=== PATIENT | female | born 1945 ===

== ENCOUNTER 2022-06-02 14:44 | Inpatient (IN) ==
[2022-06-02] MEDS ORDERED: SODIUM CHLORIDE 0.9% 1,000 ML IV STA (15:26)
[2022-06-02] MEDS ORDERED: cefTRIAXone 1,000 MG in SODIUM CHLORIDE 0.9% 100 ML IV STA (15:35)
[2022-06-02 15:53] LABS: Basophils % 0.1 % (0.0-0.8); Hematocrit 40.8 VOL% (35.7-47.0); Hemoglobin 13.5 GM/DL (12.0-16.0); Immature Granulocytes % 0.6 %; Immature Granulocytes Absolute 0.09 #; Lymphocytes # 1.4 10*3/uL (1.4-4.0); Lymphocytes % 9.8 % (21.3-54.2); Mean Corpuscular HGB Conc 33.1 GM/DL (32-36); Mean Corpuscular Volume 95.1 FL (87-102); Mean Platelet Volume 9.7 FL (9.6-12.0); Monocytes # 1.2 10*3/uL (0.11-0.8); Monocytes % 8.7 % (1.7-12.7); Neutrophils % 80.8 % (38.7-73.9); Platelet Count 369 T/CUMM (130-400); Red Blood Count 4.29 MC/CUMM (3.8-5.5); Red Cell Distribution Width 14.7 % (9.3-17.3); White Blood Count 14.3 T/CUMM (4-12)
[2022-06-02 16:09] LABS: Albumin 2.3 G/DL (3.4-5.0); Bilirubin,Total 0.7 MG/DL (0.20-1.00); Calcium 9.7 MG/DL (8.5-10.1); Osmolality,Calculated 304.7 MOS/KG (273-304); Potassium 5.3 MMOL/L (3.5-5.1); Total Protein 7.4 G/DL (6.4-8.2)
[2022-06-02 16:45] LABS: Bilirubin,Urine Negative (Negative); Blood, Urine Small mg/dL (Negative); Glucose,Urine (UA) Negative (Negative); Ketones,Urine 5 mg/dL (Negative); Nitrite,Urine Negative (Negative); Protein,Urine >=500 mg/dL (Negative); Urine Appearance CLOUDY (Clear); Urine Color Yellow (Yellow); Urine Specific Gravity 1.027 (1.001-1.035); Urine Urobilinogen < 2.0 eU/dL (<2.0)
[2022-06-02 16:48] LABS: INR 1.2; PT Patient Result 12.9 SECS (10.1-12.1); Partial Thromboplastin Time 34.7 SECS (23.7-32.9)
[2022-06-02] MEDS ORDERED: SODIUM CHLORIDE 0.9% 500 ML IV STA (16:55)
[2022-06-02] MEDS ORDERED: guaiFENesin/DM ER 600-30 MG TABLET PO PRN (17:44)
[2022-06-02] MEDS ORDERED: ONDANSETRON 4 MG/2 ML VIAL IV PRN (17:44)
[2022-06-02] MEDS ORDERED: NICOTINE 21 MG/24 HR PATCH TRANSDERM PRN (17:44)
[2022-06-02] MEDS ORDERED: hydrALAZINE 20 MG/1 ML VIAL IV PRN (17:44)
[2022-06-02] MEDS ORDERED: ACETAMINOPHEN 325 MG TABLET PO PRN (17:44)
[2022-06-02] MEDS ORDERED: SODIUM CHLORIDE 0.9% 1,000 ML IV SCH (18:00)
[2022-06-02] MEDS: HEPARIN 5,000 UNIT/1 ML VIAL SUBCUT SCH (21:15)
[2022-06-03] MEDS: cefTRIAXone 1,000 MG in SODIUM CHLORIDE 0.9% 100 ML IV SCH (05:05)
[2022-06-03 05:57] LABS: Basophils % 0.1 % (0.0-0.8); Hematocrit 38.6 VOL% (35.7-47.0); Hemoglobin 11.9 GM/DL (12.0-16.0); Immature Granulocytes % 0.6 %; Immature Granulocytes Absolute 0.11 #; Lymphocytes # 1.3 10*3/uL (1.4-4.0); Lymphocytes % 7.7 % (21.3-54.2); Mean Corpuscular HGB Conc 30.8 GM/DL (32-36); Mean Corpuscular Volume 98.7 FL (87-102); Mean Platelet Volume 9.7 FL (9.6-12.0); Monocytes # 1.1 10*3/uL (0.11-0.8); Monocytes % 6.3 % (1.7-12.7); Neutrophils % 85.3 % (38.7-73.9); Platelet Count 295 T/CUMM (130-400); Red Blood Count 3.91 MC/CUMM (3.8-5.5)
[2022-06-03 06:26] LABS: Albumin 2.1 G/DL (3.4-5.0); Bilirubin,Total 0.6 MG/DL (0.20-1.00); Calcium 9.6 MG/DL (8.5-10.1); Osmolality,Calculated 309.9 MOS/KG (273-304); Potassium 4.3 MMOL/L (3.5-5.1); Total Protein 7.1 G/DL (6.4-8.2)
[2022-06-03 07:05] LABS: Hepatitis B Core IgM Quant 0.13 Index; Hepatitis B Surface Ag Quant < 0.10 Index; Hepatitis B Surface Ag Result Non-Reactive (NonReactive); Hepatitis C Virus Ab Quant 0.09 Index; Hepatitis C Virus Ab Result Non-Reactive (NonReactive)
[2022-06-03] MEDS: HEPARIN 5,000 UNIT/1 ML VIAL SUBCUT SCH ×2 (09:46→21:55)
[2022-06-03] MEDS: PANTOPRAZOLE 40 MG TABLET PO SCH (09:46)
[2022-06-03] MEDS ORDERED: CLOBETASOL 0.05% CREAM 15 GM TUBE TOP PRN (13:04)
[2022-06-03] MEDS: DEXTROSE 5% 1,000 ML IV SCH (14:32)
[2022-06-03] MEDS: LACTULOSE 20 GM/30 ML UDCUP PO SCH ×2 (14:32→21:56)
[2022-06-03] MEDS: MIRTAZAPINE 15 MG TABLET PO SCH (21:56)
[2022-06-03] MEDS: CYPROHEPTADINE 4 MG TABLET PO SCH (21:56)
[2022-06-03] MEDS: MELATONIN 3 MG TABLET PO SCH (21:56)
[2022-06-03] MEDS: QUEtiapine 25 MG TABLET PO SCH (21:56)
[2022-06-04] MEDS: LACTULOSE 20 GM/30 ML UDCUP PO SCH ×2 (01:30→22:25)
[2022-06-04 06:03] LABS: Basophils % 0.1 % (0.0-0.8); Eosinophils # 0.1 10*3/uL (0.0-0.87); Eosinophils % 0.6 % (0.00-10.9); Hematocrit 40.1 VOL% (35.7-47.0); Hemoglobin 12.6 GM/DL (12.0-16.0); Immature Granulocytes Absolute 0.08 #; Lymphocytes # 1.6 10*3/uL (1.4-4.0); Lymphocytes % 18.9 % (21.3-54.2); Mean Corpuscular HGB Conc 31.4 GM/DL (32-36); Mean Corpuscular Volume 100.3 FL (87-102); Mean Platelet Volume 9.8 FL (9.6-12.0); Monocytes # 0.8 10*3/uL (0.11-0.8); Neutrophils % 69.4 % (38.7-73.9); Platelet Count 272 T/CUMM (130-400); Red Cell Distribution Width 15.4 % (9.3-17.3); White Blood Count 8.2 T/CUMM (4-12)
[2022-06-04 06:34] LABS: Calcium 9.5 MG/DL (8.5-10.1); Osmolality,Calculated 307.9 MOS/KG (273-304); Potassium 4.1 MMOL/L (3.5-5.1)
[2022-06-04] MEDS: LEVOTHYROXINE 50 MCG TABLET PO SCH (07:13)
[2022-06-04] MEDS: cefTRIAXone 1,000 MG in SODIUM CHLORIDE 0.9% 100 ML IV SCH (07:13)
[2022-06-04] MEDS: DEXTROSE 5% 1,000 ML IV SCH (07:15)
[2022-06-04] MEDS: HEPARIN 5,000 UNIT/1 ML VIAL SUBCUT SCH ×2 (10:30→22:25)
[2022-06-04] MEDS: CYPROHEPTADINE 4 MG TABLET PO SCH ×2 (10:34→22:25)
[2022-06-04] MEDS: OXYBUTYNIN 5 MG TABLET PO SCH (10:34)
[2022-06-04] MEDS: SERTRALINE 50 MG TABLET PO SCH (10:34)
[2022-06-04] MEDS: PANTOPRAZOLE 40 MG TABLET PO SCH (10:34)
[2022-06-04] MEDS: MELATONIN 3 MG TABLET PO SCH (22:25)
[2022-06-04] MEDS: QUEtiapine 25 MG TABLET PO SCH (22:26)
[2022-06-04] MEDS: MIRTAZAPINE 15 MG TABLET PO SCH (22:26)
[2022-06-05] MEDS: DEXTROSE 5% 1,000 ML IV SCH ×2 (05:13→22:33)
[2022-06-05] MEDS: cefTRIAXone 1,000 MG in SODIUM CHLORIDE 0.9% 100 ML IV SCH (06:07)
[2022-06-05] MEDS: LEVOTHYROXINE 50 MCG TABLET PO SCH (07:08)
[2022-06-05] MEDS: HEPARIN 5,000 UNIT/1 ML VIAL SUBCUT SCH (09:11)
[2022-06-05] MEDS: CYPROHEPTADINE 4 MG TABLET PO SCH ×2 (09:14→22:23)
[2022-06-05] MEDS: SERTRALINE 50 MG TABLET PO SCH (09:14)
[2022-06-05] MEDS: LACTULOSE 20 GM/30 ML UDCUP PO SCH ×2 (09:14→22:23)
[2022-06-05] MEDS: PANTOPRAZOLE 40 MG TABLET PO SCH (09:14)
[2022-06-05] MEDS: OXYBUTYNIN 5 MG TABLET PO SCH (09:15)
[2022-06-05] MEDS: QUEtiapine 25 MG TABLET PO SCH (22:23)
[2022-06-05] MEDS: MELATONIN 3 MG TABLET PO SCH (22:23)
[2022-06-05] MEDS: MIRTAZAPINE 15 MG TABLET PO SCH (22:23)
[2022-06-06] MEDS: DEXTROSE 5% 1,000 ML IV SCH ×2 (00:29→20:00)
[2022-06-06 05:24] LABS: Basophils % 0.3 % (0.0-0.8); Eosinophils # 0.3 10*3/uL (0.0-0.87); Eosinophils % 3.9 % (0.00-10.9); Hematocrit 34.9 VOL% (35.7-47.0); Hemoglobin 11.7 GM/DL (12.0-16.0); Immature Granulocytes % 1.1 %; Immature Granulocytes Absolute 0.08 #; Lymphocytes # 1.4 10*3/uL (1.4-4.0); Lymphocytes % 20.7 % (21.3-54.2); Mean Corpuscular HGB Conc 33.5 GM/DL (32-36); Mean Corpuscular Volume 95.9 FL (87-102); Mean Platelet Volume 10.5 FL (9.6-12.0); Monocytes # 0.6 10*3/uL (0.11-0.8); Monocytes % 8.2 % (1.7-12.7); Neutrophils % 65.8 % (38.7-73.9); Platelet Count 238 T/CUMM (130-400); Red Blood Count 3.64 MC/CUMM (3.8-5.5); Red Cell Distribution Width 14.6 % (9.3-17.3)
[2022-06-06 05:30] LABS: INR 1.1; PT Patient Result 11.9 SECS (10.1-12.1)
[2022-06-06 05:42] LABS: Calcium 9.4 MG/DL (8.5-10.1); Osmolality,Calculated 276.7 MOS/KG (273-304); Potassium 2.9 MMOL/L (3.5-5.1)
[2022-06-06] MEDS: LEVOTHYROXINE 50 MCG TABLET PO SCH (06:07)
[2022-06-06] MEDS ORDERED: POTASSIUM CHLORIDE RIDER 10 MEQ/100 ML PREMIX IV PRN (06:24)
[2022-06-06] MEDS ORDERED: LACTATED RINGERS 1,000 ML IV SCH (08:00)
[2022-06-06] MEDS ORDERED: POTASSIUM CHLORIDE INJ 50 MEQ in SODIUM CHLORIDE 0.9% 500 ML IV ONE (09:00)
[2022-06-06] MEDS ORDERED: POTASSIUM BICARB EFFERVESCENT 20 MEQ TAB.EFF PO ONE (13:00)
[2022-06-06] MEDS ORDERED: KETAMINE 500 MG/10 ML VIAL ONE (13:06)
[2022-06-06] MEDS ORDERED: ETOMIDATE 20 MG/10 ML VIAL IV ONE (13:06)
[2022-06-06] MEDS ORDERED: LIDOCAINE 2% 5 ML VIAL ONE (13:06)
[2022-06-06] MEDS ORDERED: propofoL 200 MG/20 ML VIAL IV ONE (13:06)
[2022-06-06] MEDS ORDERED: PHENYLEPHRINE 1 MG/10 ML SYRINGE IV ONE (13:13)
[2022-06-06] MEDS: PANTOPRAZOLE 40 MG TABLET PO SCH (14:44)
[2022-06-06] MEDS: CYPROHEPTADINE 4 MG TABLET PO SCH ×2 (14:44→22:06)
[2022-06-06] MEDS: LACTULOSE 20 GM/30 ML UDCUP PO SCH ×2 (14:44→22:06)
[2022-06-06] MEDS: OXYBUTYNIN 5 MG TABLET PO SCH (14:44)
[2022-06-06] MEDS: SERTRALINE 50 MG TABLET PO SCH (14:45)
[2022-06-06] MEDS: cefTRIAXone 1,000 MG in SODIUM CHLORIDE 0.9% 100 ML IV SCH (15:30)
[2022-06-06] MEDS: MELATONIN 3 MG TABLET PO SCH (22:06)
[2022-06-06] MEDS: MIRTAZAPINE 15 MG TABLET PO SCH (22:07)
[2022-06-06] MEDS: QUEtiapine 25 MG TABLET PO SCH (22:07)
[2022-06-07] MEDS: LEVOTHYROXINE 50 MCG TABLET PO SCH (05:29)
[2022-06-07 05:41] LABS: Basophils % 0.3 % (0.0-0.8); Eosinophils # 0.1 10*3/uL (0.0-0.87); Eosinophils % 2.1 % (0.00-10.9); Hematocrit 33.1 VOL% (35.7-47.0); Immature Granulocytes % 0.7 %; Immature Granulocytes Absolute 0.05 #; Lymphocytes # 1.5 10*3/uL (1.4-4.0); Lymphocytes % 22.3 % (21.3-54.2); Mean Corpuscular HGB Conc 33.2 GM/DL (32-36); Mean Corpuscular Volume 96.2 FL (87-102); Mean Platelet Volume 10.4 FL (9.6-12.0); Monocytes # 0.7 10*3/uL (0.11-0.8); Monocytes % 10.7 % (1.7-12.7); Neutrophils % 63.9 % (38.7-73.9); Platelet Count 225 T/CUMM (130-400); Red Blood Count 3.44 MC/CUMM (3.8-5.5); Red Cell Distribution Width 14.9 % (9.3-17.3); White Blood Count 6.8 T/CUMM (4-12)
[2022-06-07 06:01] LABS: Calcium 8.7 MG/DL (8.5-10.1); Osmolality,Calculated 281.1 MOS/KG (273-304); Potassium 3.5 MMOL/L (3.5-5.1)
[2022-06-07] MEDS: DEXTROSE 5% 1,000 ML IV SCH ×2 (08:29→18:26)
[2022-06-07] MEDS ORDERED: MAGNESIUM SULF RIDER 4 GM/100 ML PREMIX IV ONE (09:00)
[2022-06-07] MEDS: LACTULOSE 20 GM/30 ML UDCUP PO SCH ×2 (09:27→22:04)
[2022-06-07] MEDS: cefTRIAXone 1,000 MG in SODIUM CHLORIDE 0.9% 100 ML IV SCH (09:28)
[2022-06-07] MEDS: CYPROHEPTADINE 4 MG TABLET PO SCH ×2 (09:28→22:09)
[2022-06-07] MEDS: PANTOPRAZOLE 40 MG TABLET PO SCH (09:28)
[2022-06-07] MEDS: SERTRALINE 50 MG TABLET PO SCH (09:28)
[2022-06-07] MEDS: OXYBUTYNIN 5 MG TABLET PO SCH (09:28)
[2022-06-07] MEDS ORDERED: MAGNESIUM SULF RIDER 2 GM/50 ML PREMIX IV PRN (11:08)
[2022-06-07] MEDS ORDERED: POTASSIUM BICARB EFFERVESCENT 20 MEQ TAB.EFF PER TUBE PRN (11:08)
[2022-06-07] MEDS ORDERED: MAGNESIUM SULF RIDER 4 GM/100 ML PREMIX IV PRN (11:08)
[2022-06-07] MEDS: ZINC OXIDE PASTE 113 GM TUBE TOP SCH ×2 (16:54→22:05)
[2022-06-07] MEDS: MELATONIN 3 MG TABLET PO SCH (22:03)
[2022-06-07] MEDS: QUEtiapine 25 MG TABLET PO SCH (22:04)
[2022-06-07] MEDS: ZALEPLON 5 MG CAPSULE PO PRN (22:04)
[2022-06-07] MEDS: MIRTAZAPINE 15 MG TABLET PO SCH (22:05)
[2022-06-08] MEDS: DEXTROSE 5% 1,000 ML IV SCH (04:39)
[2022-06-08 05:44] LABS: Basophils % 0.5 % (0.0-0.8); Eosinophils # 0.3 10*3/uL (0.0-0.87); Eosinophils % 3.2 % (0.00-10.9); Hematocrit 32.6 VOL% (35.7-47.0); Hemoglobin 10.9 GM/DL (12.0-16.0); Immature Granulocytes % 0.7 %; Immature Granulocytes Absolute 0.06 #; Lymphocytes # 1.7 10*3/uL (1.4-4.0); Lymphocytes % 19.5 % (21.3-54.2); Mean Corpuscular HGB Conc 33.4 GM/DL (32-36); Mean Platelet Volume 10.9 FL (9.6-12.0); Monocytes # 0.8 10*3/uL (0.11-0.8); Monocytes % 9.6 % (1.7-12.7); Neutrophils % 66.5 % (38.7-73.9); Platelet Count 226 T/CUMM (130-400); Red Blood Count 3.43 MC/CUMM (3.8-5.5); Red Cell Distribution Width 14.7 % (9.3-17.3); White Blood Count 8.6 T/CUMM (4-12)
[2022-06-08 06:10] LABS: Calcium 8.6 MG/DL (8.5-10.1); Osmolality,Calculated 275.5 MOS/KG (273-304); Potassium 3.2 MMOL/L (3.5-5.1)
[2022-06-08] MEDS: LEVOTHYROXINE 50 MCG TABLET PO SCH (06:25)
[2022-06-08] MEDS: CYPROHEPTADINE 4 MG TABLET PO SCH ×2 (09:35→20:48)
[2022-06-08] MEDS: ZINC OXIDE PASTE 113 GM TUBE TOP SCH ×2 (09:35→20:49)
[2022-06-08] MEDS: OXYBUTYNIN 5 MG TABLET PO SCH (09:35)
[2022-06-08] MEDS: SERTRALINE 50 MG TABLET PO SCH (09:35)
[2022-06-08] MEDS: PANTOPRAZOLE 40 MG TABLET PO SCH (09:35)
[2022-06-08] MEDS: LACTULOSE 20 GM/30 ML UDCUP PO SCH ×2 (09:35→20:49)
[2022-06-08] MEDS: cefTRIAXone 1,000 MG in SODIUM CHLORIDE 0.9% 100 ML IV SCH (09:36)
[2022-06-08] MEDS: MELATONIN 3 MG TABLET PO SCH (20:48)
[2022-06-08] MEDS: QUEtiapine 25 MG TABLET PO SCH (20:48)
[2022-06-08] MEDS: MIRTAZAPINE 15 MG TABLET PO SCH (20:48)
[2022-06-08] MEDS: ZALEPLON 5 MG CAPSULE PO PRN (20:49)
[2022-06-09] MEDS: LEVOTHYROXINE 50 MCG TABLET PO SCH (05:47)
[2022-06-09] MEDS: ZINC OXIDE PASTE 113 GM TUBE TOP SCH ×2 (09:41→20:04)
[2022-06-09] MEDS: OXYBUTYNIN 5 MG TABLET PO SCH (09:41)
[2022-06-09] MEDS: LACTULOSE 20 GM/30 ML UDCUP PO SCH ×2 (09:41→20:03)
[2022-06-09] MEDS: SERTRALINE 50 MG TABLET PO SCH (09:41)
[2022-06-09] MEDS: CYPROHEPTADINE 4 MG TABLET PO SCH ×2 (09:41→20:03)
[2022-06-09] MEDS: PANTOPRAZOLE 40 MG TABLET PO SCH (09:41)
[2022-06-09] MEDS: cefTRIAXone 1,000 MG in SODIUM CHLORIDE 0.9% 100 ML IV SCH (10:31)
[2022-06-09] MEDS: diphenhydrAMINE CAP 25 MG CAPSULE PO PRN (15:21)
[2022-06-09] MEDS: MELATONIN 3 MG TABLET PO SCH (20:03)
[2022-06-09] MEDS: QUEtiapine 25 MG TABLET PO SCH (20:04)
[2022-06-09] MEDS: MIRTAZAPINE 15 MG TABLET PO SCH (20:04)
[2022-06-10] MEDS: LEVOTHYROXINE 50 MCG TABLET PO SCH (05:18)
[2022-06-10 05:29] LABS: Basophils # 0.1 10*3/uL (0.0-0.2); Basophils % 0.6 % (0.0-0.8); Eosinophils # 0.5 10*3/uL (0.0-0.87); Eosinophils % 5.5 % (0.00-10.9); Hematocrit 32.2 VOL% (35.7-47.0); Immature Granulocytes % 0.7 %; Immature Granulocytes Absolute 0.06 #; Lymphocytes # 1.4 10*3/uL (1.4-4.0); Lymphocytes % 16.2 % (21.3-54.2); Mean Corpuscular HGB Conc 34.2 GM/DL (32-36); Mean Corpuscular Volume 94.7 FL (87-102); Mean Platelet Volume 10.5 FL (9.6-12.0); Monocytes # 0.9 10*3/uL (0.11-0.8); Monocytes % 9.9 % (1.7-12.7); Neutrophils % 67.1 % (38.7-73.9); Platelet Count 237 T/CUMM (130-400); Red Cell Distribution Width 14.6 % (9.3-17.3); White Blood Count 8.7 T/CUMM (4-12)
[2022-06-10 05:58] LABS: Calcium 8.4 MG/DL (8.5-10.1); Osmolality,Calculated 275.7 MOS/KG (273-304); Potassium 3.3 MMOL/L (3.5-5.1)
[2022-06-10 06:01] LABS: Calcium 8.4 MG/DL (8.5-10.1); Osmolality,Calculated 281.3 MOS/KG (273-304); Potassium 3.5 MMOL/L (3.5-5.1)
[2022-06-10] MEDS: CYPROHEPTADINE 4 MG TABLET PO SCH ×2 (09:26→20:21)
[2022-06-10] MEDS: OXYBUTYNIN 5 MG TABLET PO SCH (09:27)
[2022-06-10] MEDS: LACTULOSE 20 GM/30 ML UDCUP PO SCH ×2 (09:27→20:21)
[2022-06-10] MEDS: ZINC OXIDE PASTE 113 GM TUBE TOP SCH ×2 (09:27→20:23)
[2022-06-10] MEDS: SERTRALINE 50 MG TABLET PO SCH (09:27)
[2022-06-10] MEDS: cefTRIAXone 1,000 MG in SODIUM CHLORIDE 0.9% 100 ML IV SCH (09:27)
[2022-06-10] MEDS: PANTOPRAZOLE 40 MG TABLET PO SCH (09:27)
[2022-06-10 11:08] LABS: % Iron Saturation 21.9 % (18-50)
[2022-06-10 11:16] LABS: Folate 2.32 NG/ML (5.38-24.0)
[2022-06-10] MEDS: diphenhydrAMINE CAP 25 MG CAPSULE PO PRN (15:04)
[2022-06-10] MEDS: FERRIC GLUCONATE COMPLEX 125 MG in SODIUM CHLORIDE 0.9% 100 ML IV SCH (15:44)
[2022-06-10] MEDS: FOLIC ACID 1 MG TABLET PO SCH (20:21)
[2022-06-10] MEDS: MELATONIN 3 MG TABLET PO SCH (20:21)
[2022-06-10] MEDS: MIRTAZAPINE 15 MG TABLET PO SCH (20:23)
[2022-06-10] MEDS: QUEtiapine 25 MG TABLET PO SCH (20:23)
[2022-06-11 05:18] LABS: Basophils # 0.1 10*3/uL (0.0-0.2); Basophils % 0.7 % (0.0-0.8); Eosinophils # 0.6 10*3/uL (0.0-0.87); Eosinophils % 6.8 % (0.00-10.9); Hematocrit 32.7 VOL% (35.7-47.0); Immature Granulocytes % 0.6 %; Immature Granulocytes Absolute 0.05 #; Lymphocytes # 1.4 10*3/uL (1.4-4.0); Lymphocytes % 17.4 % (21.3-54.2); Mean Corpuscular HGB Conc 33.6 GM/DL (32-36); Mean Corpuscular Volume 94.5 FL (87-102); Mean Platelet Volume 11.2 FL (9.6-12.0); Monocytes # 0.7 10*3/uL (0.11-0.8); Monocytes % 8.4 % (1.7-12.7); Neutrophils % 66.1 % (38.7-73.9); Platelet Count 241 T/CUMM (130-400); Red Blood Count 3.46 MC/CUMM (3.8-5.5); Red Cell Distribution Width 14.8 % (9.3-17.3); White Blood Count 8.1 T/CUMM (4-12)
[2022-06-11 05:46] LABS: Calcium 8.3 MG/DL (8.5-10.1); Osmolality,Calculated 280.4 MOS/KG (273-304); Potassium 3.4 MMOL/L (3.5-5.1)
[2022-06-11] MEDS: LEVOTHYROXINE 50 MCG TABLET PO SCH (05:48)
[2022-06-11] MEDS ORDERED: POTASSIUM CHLORIDE 20 MEQ TABLET PO ONE (09:13)
[2022-06-11] MEDS: OXYBUTYNIN 5 MG TABLET PO SCH (09:14)
[2022-06-11] MEDS: FOLIC ACID 1 MG TABLET PO SCH (09:14)
[2022-06-11] MEDS: CYPROHEPTADINE 4 MG TABLET PO SCH (09:14)
[2022-06-11] MEDS: FERRIC GLUCONATE COMPLEX 125 MG in SODIUM CHLORIDE 0.9% 100 ML IV SCH (09:15)
[2022-06-11] MEDS: PANTOPRAZOLE 40 MG TABLET PO SCH (09:15)
[2022-06-11] MEDS: SERTRALINE 50 MG TABLET PO SCH (09:15)
[2022-06-11] MEDS: LACTULOSE 20 GM/30 ML UDCUP PO SCH (09:15)
[2022-06-11] MEDS: ZINC OXIDE PASTE 113 GM TUBE TOP SCH (09:17)
[2022-06-11 12:32] VITALS: BP 113/75
== END 2022-06-11 13:10 | DRG 441 ==
LOC: N.ED 14:44 → N.5E 17:44 → SUATTDRO 17:44 → N.5E 19:52
PROVIDERS: ADMIT Internal Medicine; ATTEND Internal Medicine
PROC: EGDWPEG (ICD-10-PCS; 2022-06-06 07:50)

== ENCOUNTER 2022-06-17 23:48 | Inpatient (IN) ==
[2022-06-18 00:38] LABS: Basophils # 0.1 10*3/uL (0.0-0.2); Basophils % 0.6 % (0.0-0.8); Hematocrit 31.9 VOL% (35.7-47.0); Hemoglobin 10.2 GM/DL (12.0-16.0); Immature Granulocytes % 1.6 %; Immature Granulocytes Absolute 0.13 #; Lymphocytes # 0.7 10*3/uL (1.4-4.0); Lymphocytes % 8.4 % (21.3-54.2); Mean Corpuscular Volume 100.3 FL (87-102); Mean Platelet Volume 10.9 FL (9.6-12.0); Monocytes # 0.4 10*3/uL (0.11-0.8); Monocytes % 5.4 % (1.7-12.7); Platelet Count 266 T/CUMM (130-400); Red Blood Count 3.18 MC/CUMM (3.8-5.5); Red Cell Distribution Width 14.8 % (9.3-17.3)
[2022-06-18 01:03] LABS: Albumin 1.7 G/DL (3.4-5.0); Bilirubin,Total 0.4 MG/DL (0.20-1.00); Calcium 8.1 MG/DL (8.5-10.1); Osmolality,Calculated 275.1 MOS/KG (273-304); Potassium 3.9 MMOL/L (3.5-5.1); Total Protein 5.9 G/DL (6.4-8.2)
[2022-06-18 01:36] LABS: Mucus,Urine Few /LPF (Occasional); RBC,Urine 17 /HPF (0-4); Squamous Epithelial Cell,Urine Few /HPF (0-10); Urine Appearance Turbid (Clear); Urine Color Yellow (Yellow)
[2022-06-18 01:37] LABS: Glucose,Urine (UA) Negative (Negative); Ketones,Urine Negative (Negative); Nitrite,Urine Negative (Negative); Protein,Urine 100 mg/dL (Negative); Urine pH 8.5 (4.5-8.0)
[2022-06-18 01:38] LABS: Bilirubin,Urine Negative (Negative); Blood, Urine Large mg/dL (Negative); Urine Urobilinogen 0.2 eU/dL (<2.0)
[2022-06-18] MEDS ORDERED: cefTRIAXone 1,000 MG in SODIUM CHLORIDE 0.9% 100 ML IV STA (02:04)
[2022-06-18] MEDS ORDERED: ONDANSETRON 4 MG/2 ML VIAL IV PRN (04:19)
[2022-06-18] MEDS ORDERED: MAGNESIUM SULF RIDER 2 GM/50 ML PREMIX IV ONE (04:19)
[2022-06-18] MEDS ORDERED: ACETAMINOPHEN 325 MG TABLET PO PRN (04:19)
[2022-06-18] MEDS ORDERED: SODIUM CHLORIDE 0.9% 1,000 ML IV STA (05:33)
[2022-06-18] MEDS: SODIUM CHLORIDE 0.9% 1,000 ML IV SCH ×2 (06:35→16:22)
[2022-06-18 08:25] LABS: PT Patient Result 11.4 SECS (10.1-12.1); Partial Thromboplastin Time 35.6 SECS (23.7-32.9)
[2022-06-18] MEDS: OMEPRAZOLE ODT 20 MG TABLET PER TUBE SCH (08:40)
[2022-06-18] MEDS ORDERED: PANTOPRAZOLE 40 MG TABLET PO SCH (09:00)
[2022-06-18] MEDS ORDERED: SODIUM CHLORIDE 0.9% 1,000 ML IV ONE (10:40)
[2022-06-18] MEDS: FERROUS SULFATE 300 MG/5 ML UDCUP NG SCH (16:50)
[2022-06-18] MEDS ORDERED: ENOXAPARIN 40 MG/0.4 ML SYRINGE SUBCUT SCH (21:00)
[2022-06-18] MEDS: MELATONIN 3 MG TABLET PO SCH (22:24)
[2022-06-18] MEDS: QUEtiapine 25 MG TABLET PO SCH (22:24)
[2022-06-18] MEDS: LACTULOSE 20 GM/30 ML UDCUP PO SCH (22:24)
[2022-06-18] MEDS: cefTRIAXone 1,000 MG in SODIUM CHLORIDE 0.9% 100 ML IV SCH (22:24)
[2022-06-18] MEDS: FOLIC ACID 1 MG TABLET PO SCH (22:24)
[2022-06-18] MEDS: CYPROHEPTADINE 4 MG TABLET PO SCH (22:24)
[2022-06-18] MEDS: MIRTAZAPINE 15 MG TABLET PO SCH (22:24)
[2022-06-19] MEDS: SODIUM CHLORIDE 0.9% 1,000 ML IV SCH ×3 (00:02→21:42)
[2022-06-19 05:07] LABS: Basophils # 0.1 10*3/uL (0.0-0.2); Basophils % 0.9 % (0.0-0.8); Eosinophils # 0.4 10*3/uL (0.0-0.87); Eosinophils % 5.4 % (0.00-10.9); Hematocrit 30.4 VOL% (35.7-47.0); Hemoglobin 9.6 GM/DL (12.0-16.0); Immature Granulocytes % 0.7 %; Immature Granulocytes Absolute 0.05 #; Lymphocytes # 1.1 10*3/uL (1.4-4.0); Lymphocytes % 16.9 % (21.3-54.2); Mean Corpuscular HGB Conc 31.6 GM/DL (32-36); Mean Platelet Volume 10.8 FL (9.6-12.0); Monocytes # 0.8 10*3/uL (0.11-0.8); Monocytes % 11.8 % (1.7-12.7); Neutrophils % 64.3 % (38.7-73.9); Platelet Count 202 T/CUMM (130-400); Red Blood Count 3.01 MC/CUMM (3.8-5.5); Red Cell Distribution Width 14.9 % (9.3-17.3); White Blood Count 6.7 T/CUMM (4-12)
[2022-06-19 05:33] LABS: Alanine Aminotransferase 45 U/L (13-56); Albumin 1.5 G/DL (3.4-5.0); Alkaline Phosphatase 304 U/L (45-117); Aspartate Amino Transferase 54 U/L (0-37); Bilirubin,Total < 0.39 MG/DL (0.20-1.00); Blood Urea Nitrogen 17 MG/DL (7-18); Calcium 8.2 MG/DL (8.5-10.1); Carbon Dioxide 26 MMOL/L (21-32); Chloride 110 MMOL/L (98-107); Glucose 95 MG/DL (74-106); Osmolality,Calculated 282.3 MOS/KG (273-304); Potassium 3.6 MMOL/L (3.5-5.1); Sodium 141 MMOL/L (136-145); Total Protein 5.7 G/DL (6.4-8.2)
[2022-06-19] MEDS: LEVOTHYROXINE 50 MCG TABLET PO SCH (06:11)
[2022-06-19] MEDS: OXYBUTYNIN 5 MG TABLET PO SCH (09:40)
[2022-06-19] MEDS: SERTRALINE 50 MG TABLET PO SCH (09:40)
[2022-06-19] MEDS: OMEPRAZOLE ODT 20 MG TABLET PER TUBE SCH (09:40)
[2022-06-19] MEDS: FERROUS SULFATE 300 MG/5 ML UDCUP NG SCH ×2 (09:40→16:42)
[2022-06-19] MEDS: CYPROHEPTADINE 4 MG TABLET PO SCH ×2 (09:40→21:41)
[2022-06-19] MEDS: LACTULOSE 20 GM/30 ML UDCUP PO SCH ×2 (09:41→21:41)
[2022-06-19] MEDS: cefTRIAXone 1,000 MG in SODIUM CHLORIDE 0.9% 100 ML IV SCH (21:39)
[2022-06-19] MEDS: QUEtiapine 25 MG TABLET PO SCH (21:42)
[2022-06-19] MEDS: MIRTAZAPINE 15 MG TABLET PO SCH (21:42)
[2022-06-19] MEDS: MELATONIN 3 MG TABLET PO SCH (21:42)
[2022-06-19] MEDS: FOLIC ACID 1 MG TABLET PO SCH (21:42)
[2022-06-20 05:29] LABS: Basophils # 0.1 10*3/uL (0.0-0.2); Basophils % 1.1 % (0.0-0.8); Eosinophils # 0.3 10*3/uL (0.0-0.87); Eosinophils % 5.3 % (0.00-10.9); Hematocrit 27.5 VOL% (35.7-47.0); Hemoglobin 8.9 GM/DL (12.0-16.0); Immature Granulocytes Absolute 0.05 #; Lymphocytes # 1.2 10*3/uL (1.4-4.0); Lymphocytes % 22.5 % (21.3-54.2); Mean Corpuscular HGB Conc 32.4 GM/DL (32-36); Mean Platelet Volume 11.1 FL (9.6-12.0); Monocytes # 0.6 10*3/uL (0.11-0.8); Monocytes % 11.8 % (1.7-12.7); Neutrophils % 58.3 % (38.7-73.9); Platelet Count 221 T/CUMM (130-400); Red Blood Count 2.75 MC/CUMM (3.8-5.5); Red Cell Distribution Width 14.7 % (9.3-17.3); White Blood Count 5.2 T/CUMM (4-12)
[2022-06-20 05:52] LABS: Alanine Aminotransferase 37 U/L (13-56); Albumin 1.4 G/DL (3.4-5.0); Alkaline Phosphatase 267 U/L (45-117); Aspartate Amino Transferase 48 U/L (0-37); Bilirubin,Total < 0.39 MG/DL (0.20-1.00); Blood Urea Nitrogen 11 MG/DL (7-18); Calcium 7.7 MG/DL (8.5-10.1); Carbon Dioxide 25 MMOL/L (21-32); Chloride 111 MMOL/L (98-107); Glucose 85 MG/DL (74-106); Osmolality,Calculated 280.1 MOS/KG (273-304); Potassium 2.8 MMOL/L (3.5-5.1); Sodium 142 MMOL/L (136-145); Total Protein 5.1 G/DL (6.4-8.2)
[2022-06-20] MEDS: SODIUM CHLORIDE 0.9% 1,000 ML IV SCH ×2 (06:12→17:10)
[2022-06-20] MEDS: LEVOTHYROXINE 50 MCG TABLET PO SCH (06:13)
[2022-06-20] MEDS: FERROUS SULFATE 300 MG/5 ML UDCUP NG SCH ×2 (09:23→17:01)
[2022-06-20] MEDS: POTASSIUM BICARB EFFERVESCENT 20 MEQ TAB.EFF PER TUBE PRN ×4 (09:23→17:01)
[2022-06-20] MEDS: CYPROHEPTADINE 4 MG TABLET PO SCH ×2 (09:23→21:21)
[2022-06-20] MEDS: OMEPRAZOLE ODT 20 MG TABLET PER TUBE SCH (09:24)
[2022-06-20] MEDS: OXYBUTYNIN 5 MG TABLET PO SCH (09:24)
[2022-06-20] MEDS: SERTRALINE 50 MG TABLET PO SCH (09:24)
[2022-06-20] MEDS ORDERED: VANCOMYCIN 50 MG/ML 60 ML/BOTTLE PO SCH (10:00)
[2022-06-20] MEDS: LACTULOSE 20 GM/30 ML UDCUP PO SCH (10:03)
[2022-06-20] MEDS: VANCOMYCIN 125 MG CAPSULE PO SCH ×3 (11:20→21:30)
[2022-06-20] MEDS: FOLIC ACID 1 MG TABLET PO SCH (21:21)
[2022-06-20] MEDS: MIRTAZAPINE 15 MG TABLET PO SCH (21:21)
[2022-06-20] MEDS: MELATONIN 3 MG TABLET PO SCH (21:21)
[2022-06-20] MEDS: QUEtiapine 25 MG TABLET PO SCH (21:21)
[2022-06-20] MEDS: cefTRIAXone 1,000 MG in SODIUM CHLORIDE 0.9% 100 ML IV SCH (21:25)
[2022-06-21] MEDS: VANCOMYCIN 125 MG CAPSULE PO SCH ×3 (05:30→17:44)
[2022-06-21] MEDS: LEVOTHYROXINE 50 MCG TABLET PO SCH (05:33)
[2022-06-21 07:42] LABS: Basophils # 0.1 10*3/uL (0.0-0.2); Basophils % 0.9 % (0.0-0.8); Eosinophils # 0.4 10*3/uL (0.0-0.87); Eosinophils % 7.7 % (0.00-10.9); Hematocrit 30.1 VOL% (35.7-47.0); Hemoglobin 9.7 GM/DL (12.0-16.0); Immature Granulocytes % 1.8 %; Lymphocytes # 1.1 10*3/uL (1.4-4.0); Lymphocytes % 19.3 % (21.3-54.2); Mean Corpuscular HGB Conc 32.2 GM/DL (32-36); Mean Platelet Volume 10.9 FL (9.6-12.0); Monocytes # 0.6 10*3/uL (0.11-0.8); Monocytes % 10.5 % (1.7-12.7); Neutrophils % 59.8 % (38.7-73.9); Platelet Count 240 T/CUMM (130-400); Red Blood Count 3.01 MC/CUMM (3.8-5.5); White Blood Count 5.6 T/CUMM (4-12)
[2022-06-21 07:56] LABS: Calcium 7.6 MG/DL (8.5-10.1); Osmolality,Calculated 275.5 MOS/KG (273-304); Potassium 3.6 MMOL/L (3.5-5.1)
[2022-06-21] MEDS: SODIUM CHLORIDE 0.9% 1,000 ML IV SCH (09:38)
[2022-06-21] MEDS: SERTRALINE 50 MG TABLET PO SCH (09:38)
[2022-06-21] MEDS: OXYBUTYNIN 5 MG TABLET PO SCH (09:38)
[2022-06-21] MEDS: CYPROHEPTADINE 4 MG TABLET PO SCH (09:38)
[2022-06-21] MEDS: OMEPRAZOLE ODT 20 MG TABLET PER TUBE SCH (09:38)
[2022-06-21] MEDS: FERROUS SULFATE 300 MG/5 ML UDCUP NG SCH ×2 (09:38→17:44)
[2022-06-21] MEDS ORDERED: MAGNESIUM SULF RIDER 2 GM/50 ML PREMIX IV ONE (10:30)
[2022-06-21 15:32] VITALS: BP 113/54
== END 2022-06-21 18:42 | disposition hospice, inpatient (51) | DRG 871 ==
LOC: EDUNIT# → EDBD → N.ED 23:48 → N.EDINP 06-18 04:19 → N.3E 06-18 05:41
PROVIDERS: ADMIT Internal Medicine; ATTEND Internal Medicine